=== PATIENT | female | born 1990 | race Caucasian/White ===

== ENCOUNTER 2024-03-27 15:02 | Emergency (ER) | payer SELFPAY ==
[2024-03-27 15:31] VITALS: BP 102/56; PULSE 84; RESP 20; TEMP 36.5; O2SAT 98; BMI 38.2
--- NOTE | 2024-03-27 15:39 | ED_ITS ---
Discharge Plan Disposition Patient Disposition: Home, Self-Care Condition: Good Prescriptions Prescriptions: New cephalexin 500 mg capsule 500 mg PO QID 7 Days Qty: 28 0RF Referrals Follow up/Referrals: Provider,Referral, MD [Primary Care Provider] - See instructions Activity Restrictions/Add. Instructions Additional Instructions/Restrictions: Keep the wound clean and dry. Keep a dressing on it if you are going to be getting it dirty. Watch the wound for signs of infection, such as redness, swelling, drainage, fever. etc. Take tylenol or ibuprofen for pain. Follow up with your regular doctor. Return in 7 days to have the sutures removed. GO TO THE ER FOR ANY WORSENING SYMPTOMS OR CONCERNS. Clinical Impressions Clinical Impression: Laceration of left hand, Need for Tdap vaccination Stand Alone Forms Stand Alone Forms: Work/School Release Instructions Patient Instructions: DI for Laceration Repair -- Simple, Cephalexin Print Language Print Language: Pashto Discharge ED Provider: Garth Walters [facility] General Stated complaint: AO 10-6 cut left hand at work Mode of Arrival: Ambulatory Source of Information: Patient Time Seen by Provider: 03/27/24 15:37 Description of Symptoms (Recalled from Triage Doc. 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 Her tetanus immunization is not up to date. Related Data Previous Rx's ?Medication ?Instructions ?Recorded cephalexin 500 mg capsule 500 mg PO QID 7 days #28 caps 03/27/24 Allergies Allergy/AdvReac Type Severity Reaction Status Date / Time No Known Allergies Allergy Unverified 03/27/24 16:13 Worker's Comp Is this a Worker's Comp case?: No [facility] Disclaimer: The information contained in this section may have been updated after the patient was seen, as this information can be updated by other users. Social History Smoking Status: Never smoker alcohol intake: never current occupational status: employed Travel in the last 8 weeks: None ROS Obtained: Yes All systems reviewed & no additional complaints except as documented Constitutional Constitutional: Denies chills and Denies fever(s) Eyes Eyes: Denies eye discharge ENT Ears, Nose, Mouth, and Throat: Denies dizziness, Denies otalgia and Denies sore throat Cardiovascular Cardiovascular: Denies chest pain Respiratory Respiratory: Denies shortness of breath, Denies chest congestion, Denies cough, Denies stridor and Denies wheezing Gastrointestinal Gastrointestingal: Denies nausea or vomiting Musculoskeletal Musculoskeletal: Reports system reviewed and no additional complaints, except as documented and Denies arthralgias Integumentary/Breasts Skin/Breast: Reports as per HPI Neurologic Neurologic: Denies dizziness and Denies paresthesias Allergic/Immunologic Allergic/Immunologic: Denies wheezing Physical Exam General General appearance: alert and in no apparent distress Head Head exam: atraumatic, normocephalic and normal inspection Eye Eye exam: Present normal appearance, PERRL and EOMI ENT ENT exam: Present normal exam, normal oropharynx, mucous membranes moist, TM's n ormal bilaterally and normal external ear exam Neck Neck exam: Present normal inspection, full ROM and trachea midline; Absent meningismus or lymphadenopathy Chest Chest inspection: Present normal inspection and symmetric chest wall rise; Absent tenderness Respiratory Respiratory exam: Present normal lung sounds bilaterally; Absent respiratory distress Cardiovascular Cardiovascular exam: Present regular rate and normal rhythm; Absent JVD Abdominal Exam Abdominal exam: Present soft and normal bowel sounds; Absent distention, tenderness or guarding Extremities Exam Extremities exam: Present normal inspection, full ROM and normal capillary refill; Absent calf tenderness Back Exam Back exam: Present normal inspection; Absent tenderness Neurological Exam Neurological exam: Present alert and oriented X3 Psychiatric Psychiatric exam: Present normal affect and normal mood Skin Skin exam: Present other (there is a 1 cm linear laceration on the palm of her left hand. there is no deep tissue or tendon damage. no foreign body noted. she has good 2 point touch discrimination distal to the wound.) Lymphatic Lymphatic Findings: no adenopathy Medical Decision Making Medical Records Medical records reviewed: No I reviewed the patient's medical records. Screening: Per USPSTF and CDC recommendations, given the prevalence of disease in our region, it is our hospital?s policy to screen for HIV and viral Hepatitis for all patients aged 18 and over and those with ongoing risk factors. Jeb Inquiry Pt receiving controlled substance: No Vital Signs: 03/27/24 15:31 Temperature 97.7 F Temperature Source Oral Pulse Rate [Left Radial] 84 Respiratory Rate 20 Blood Pressure [Left Arm] 102/56 L Blood Pressure Mean [Left Arm] 71 02 Sat by Pulse Oximetry 98 Orders (Tests/Meds): ED MEDICATIONS Generic Name Dose Route Start Last Admin Trade Name Freq PRN Reason Stop Dose Admin Tetanus/Diphtheria Toxoids 0.5 ml 03/27/24 15:38 Tetanus-Diphth Toxoid, Adult 0.5ml Syr IM 03/27/24 15:39 .ONCE ONE Procedures Risk/Benefits of Procedure(s) Were Explained: Yes Laceration Laceration 1: Site: hand Side (If applicable): left Size (cm): 1 Description: linear Depth: simple, single layer Local Anesthetic: lidocaine 1% Amount of anesthesia used (mL): 1 Pre-repair: wound explored, irrigated extensively and deep structures intact Skin layer closed with: nylon Size (cm): 5-0 Number of sutures: 2 Technique: simple, interrupted (she tolerated this well, good closure was obtained, the edges were approximated well)
[2024-03-27] MEDS: TET/DIPHTH/PERT-ADULT 0.5ML SYRINGE 0.5 ML IM (16:34)
[2024-03-27 17:26] VITALS: BP 102/56; PULSE 84; RESP 20; TEMP 36.5
== END 2024-03-27 17:33 | disposition home or self-care (01) ==
PROVIDERS: Emergency Provider Nurse Practitioner Family
DX: S61.412A Laceration without foreign body of left hand, initial encounter (principal); W26.0XXA Contact with knife, initial encounter
CPT/HCPCS: 12001; 90471; 90715; 99213; G0381

== ENCOUNTER 2024-04-03 11:43 | Emergency (ER) | payer MEDICAID, SELFPAY ==
[2024-04-03 12:05] VITALS: BP 138/93; PULSE 81; RESP 20; TEMP 36.8; O2SAT 98; BMI 33.3
[2024-04-03 12:15] VITALS: BP 138/93; PULSE 81; RESP 20; TEMP 36.8; O2SAT 98
== END 2024-04-03 12:17 | disposition home or self-care (01) ==
PROVIDERS: Emergency Provider Nurse Practitioner
DX: Z48.02 Encounter for removal of sutures (principal)
CPT/HCPCS: 99211; G0380

== ENCOUNTER 2024-04-27 09:28 | Emergency (ER) | payer OTHER, SELFPAY ==
[2024-04-27 09:30] VITALS: BP 170/110; PULSE 98; RESP 18; TEMP 36.8; O2SAT 98; BMI 38.2
--- NOTE | 2024-04-27 09:55 | PC.NURSE ---
calling radiology to power share the right images at this time.
--- NOTE | 2024-04-27 10:00 | ED_ITS ---
Discharge Plan Disposition Patient Disposition: Home, Self-Care Condition: Good Prescriptions Prescriptions: New naproxen 500 mg tablet 500 mg PO BID Qty: 20 0RF No Action cephalexin 500 mg capsule 500 mg PO QID 7 Days Qty: 28 0RF Referrals Follow up/Referrals: Nik Levia DO [Staff Physician] - See instructions Provider,Referral, [Primary Care Provider] - See instructions Activity Restrictions/Add. Instructions Additional Instructions/Restrictions: You were evaluated in the emergency department today. Please follow-up closely with orthopedics for further evaluation of your knee effusion. 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 Rest, ice, and keep your knee elevated. Return to the emergency department for new or worsening symptoms. Clinical Impressions Clinical Impression: Acute pain of left knee, Suprapatellar effusion of knee, Osteoarthritis Stand Alone Forms Stand Alone Forms: Work/School Release Instructions Patient Instructions: DI for Knee Effusion, DI for Knee Pain Print Language Print Language: Kittitian Discharge ED Provider: Alyssa Green General Adult HPI General Chief complaint: PAIN Stated complaint: L knee pain Time Seen by Provider: 04/27/24 09:45 Mode of Arrival: Ambulatory Source of Information: Patient Limitations: No Limitations Description of Symptoms (Recalled from ER Triage Doc. by RN): PT C/O SWELLING AND PAIN TO LEFT KNEE. 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 History of Present Illness HPI narrative: This patient is a 33-year-old female with history of obesity presenting to the emergency department for evaluation with concern for left knee pain and swelling. She notes that initially, her left lower leg was a little bit swollen but now her left knee has been swollen for several days. She states that she has been moving and also has been playing with rough and rowdy kids with increase in activity as of late, but no notable falls or injuries that she can remember. She has limited range of motion secondary to the swelling but she is still able to range her knee and is able to bear weight, though it is painful. No recent fevers, chills, rashes, wounds, chest pain, shortness of breath, nausea, vomiting, or other concerns. Related Data Previous Rx's ?Medication ?Instructions ?Recorded cephalexin 500 mg capsule 500 mg PO QID 7 days #28 caps 03/27/24 naproxen 500 mg tablet 500 mg PO BID #20 tabs 04/27/24 Allergies Allergy/AdvReac Type Severity Reaction Status Date / Time No Known Allergies Allergy Unverified 03/27/24 16:13 [facility] Disclaimer: The information contained in this section may have been updated after the patient was seen, as this information can be updated by other users. Social History Smoking Status: Current every day smoker alcohol intake: never current occupational status: employed Travel in the last 8 weeks: None ROS Obtained: Yes All systems reviewed & no additional complaints except as documented Physical Exam General General appearance: alert and in no apparent distress Head Head exam: atraumatic and normocephalic Eye Eye exam: Present normal appearance, PERRL and EOMI ENT ENT exam: Present normal exam, normal oropharynx, mucous membranes moist and normal external ear exam Neck Neck exam: Present normal inspection, full ROM and trachea midline; Absent tenderness Chest Chest inspection: Present normal inspection and symmetric chest wall rise; Absent tenderness Respiratory Respiratory exam: Present normal lung sounds bilaterally; Absent respiratory distress, wheezes, stridor or accessory muscle use Cardiovascular Cardiovascular exam: Present regular rate and normal rhythm Abdominal Exam Abdominal exam: Present soft; Absent distention, tenderness or guarding Extremities Exam Extremities exam: Present normal capillary refill, edema (mild LLE edema), joint swelling (L knee. No significant redness, warmth. No wounds.) and other (Neurovascularly intact distally); Absent full ROM (Limited active end range of motion of the left knee secondary to swelling, but motion is preserved from 0 to 90 degrees. Less pain with passive ROM) or tenderness Back Exam Back exam: Present normal inspection and full ROM; Absent tenderness Neurological Exam Neurological exam: Present alert, oriented X3, CN II-XII intact and normal gait; Absent motor sensory deficit Psychiatric Psychiatric exam: Present normal affect and normal mood Skin Skin exam: Present warm and dry Medical Decision Making Medical Records Medical records reviewed: Yes I reviewed the patient's medical records. Screening: Per USPSTF and CDC recommendations, given the prevalence of disease in our region, it is our hospital?s policy to screen for HIV and viral Hepatitis for all patients aged 18 and over and those with ongoing risk factors. Jeb Inquiry Pt receiving controlled substance: No Vital Signs: 04/27/24 09:30 04/27/24 10:14 04/27/24 12:24 Temperature 98.3 F 98.0 F Temperature Source Oral Pulse Rate 84 84 Pulse Rate [Radial] 98 H Respiratory Rate 18 13 Blood Pressure 127/85 127/85 Blood Pressure [Right Arm] 170/110 H Blood Pressure Mean [Right Arm] 130 Blood Pressure Source [Right Arm] Automatic Cuff Blood Pressure Position [Right Arm] Sitting 02 Sat by Pulse Oximetry 98 96 Oxygen Delivery Method Room Air Room Air Lab Data Lab results reviewed: Yes I reviewed the patient's lab results. Lab Results 04/27/24 10:55: Urine Color Yellow, Urine Appearance Sl cloudy, Urine pH 7.5, Ur Specific [place] 1.015, Urine Protein Negative, Urine Glucose (UA) Negative, Urine Ketones Negative, Urine Blood Negative, Urine Nitrate Negative, Urine Bilirubin Negative, Urine Urobilinogen 0.2, Ur Leukocyte Esterase Negative, Urine RBC Occasional, Urine WBC Occasional, Ur Squamous Epith Cells 3-5, Urine Bacteria Trace 04/27/24 11:00: WBC 9.6, RBC 4.79, Hgb 14.5, Hct 42.6, MCV 89.1, MCH 30.4, MCHC 34.1, RDW 13.0, Plt Count 401, MPV 7.1 L, Neut % (Auto) 62.2, Lymph % (Auto) 26.2, [place] % (Auto) 5.3, Eos % (Auto) 5.1, Baso % (Auto) 1.2, Neut # (Auto) 6.0, Lymph # (Auto) 2.5, [place] # (Auto) 0.5, Eos # (Auto) 0.5 H, Baso # (Auto) 0.1, ESR 17, Sodium 139, Potassium 4.1, Chloride 109 H, Carbon Dioxide 22, Anion Gap 12.1, BUN 7, Creatinine 0.70, Estimated Creat Clear 185, Estimated GFR 95, Est GFR ( Amer) 115, Glucose 93, Calcium 8.7, Total Bilirubin 0.6, AST 27, ALT 30, Alkaline Phosphatase 78, C-Reactive Protein 8.5 H, Total Protein 6.9, Albumin 4.1, Globulin 2.8, Albumin/Globulin Ratio 1.5, Serum HCG, Qual Negative, HIV 1&2 Antibody Rapid Nonreactive 04/27/24 11:00 04/27/24 11:00 Orders (Tests/Meds): ED MEDICATIONS Discontinued Medications Generic Name Dose Route Start Last Admin Trade Name Nicole PRN Reason Stop Dose Admin Ketorolac Tromethamine 15 mg 04/27/24 12:15 04/27/24 12:19 Ketorolac 30mg/Ml Vial IV 04/27/24 12:16 15 mg ONCE ONE Administration ORDERS Category Date Time Status CT knee LT wo con Stat Cat Scan 04/27/24 10:38 Completed Femur XR left 2 views [XR femur LT 2V] Stat Exams 04/27/24 10:38 Taken Knee XR left 3 views [XR knee LT 3V] Stat Exams 04/27/24 10:06 Completed Tibia/fibula XR left 2 views [XR tibia fibula LT 2V] Exams 04/27/24 10:06 Completed Stat CRP [C-Reactive Protein] Stat Lab 04/27/24 11:00 Completed Complete Blood Count Auto Diff Stat Lab 04/27/24 11:00 Completed Comprehensive Metabolic Panel Stat Lab 04/27/24 11:00 Completed ESR [Erythrocyte Sedimentation Rate] Stat Lab 04/27/24 11:00 Completed HIV (1&2) Antibody Rapid Stat Lab 04/27/24 11:00 Completed Hep C Ab with Reflex to RNA Stat Lab 04/27/24 11:00 Received Serum [HCG Qualitative, Serum] Stat Lab 04/27/24 11:00 Completed UA [Urinalysis and Microscopic] Stat Lab 04/27/24 10:55 Completed CA venous doppler LE LT Stat Y 04/27/24 10:06 Completed Medical Decision Narrative: In summary, this patient is a 33-year-old female presenting to the Emergency Department for evaluation of left knee pain and swelling. Differential diagnoses considered include but are not limited to arthritis, soft tissue injury, cartilaginous/ligamentous injury, fracture, gout, septic arthritis. Ruling out the most morbid conditions drove assessment. On exam, the patient is lying in bed in no acute distress. She has preserved range of motion of her knee actively from 0 to 90 degrees and passive range of motion is preserved as well. No redness, warmth, wounds.overall exam is reassuring and low concern for septic arthritis based on clinical exam. She is neurovascularly intact distally. Workup included CBC, CMP, ESR, CRP, x-rays of the left lower extremity, and DVT ultrasound. I independently interpreted x-rays and DVT ultrasound prior to the radiologist read and noted arthritic changes, no DVT. Please see their read for final interpretation. Labs were obtained that demonstrated no significant elevation in ESR, no significant leukocytosis. CRP is just above the upper limits of normal. Based on Anne criteria, low concern for septic arthritis. Radiology noted possible bony fragment in the left knee, so CT scan was ordered. This demonstrated arthritic changes but no obvious acute fracture or other concern. Ultimately, based on reassuring workup and exam, I feel the patient is appropriate for discharge home. I feel her effusion is likely related to arthritic changes and her recent increase in movement and activity. She was given prescriptions for anti-inflammatory, instructions for close follow-up with primary care, and strict return precautions. Patient was discharged after all questions were answered. Critical Care Critical Care Time Critical Care Time: No
--- NOTE | 2024-04-27 10:06 | XR_ITS ---
PROCEDURE INFORMATION: Exam: XR Left Knee Exam date and time: 04/27/2024 10:07 AM Age: 33 years old Clinical indication: Swelling, leg or foot; Additional info: Pain, swelling TECHNIQUE: Imaging protocol: Radiologic exam of the left knee. Views: 3 views. COMPARISON: No relevant prior studies available. FINDINGS: Bones/joints: Moderate degenerative changes within the lateral compartment and to a lesser degree the medial compartment. Joint space narrowing with osteophytosis. Mild patellofemoral degenerative changes. Small suprapatellar effusion. Soft tissues: Normal. Other findings: Probable loose body. Correlation with CT suggested. IMPRESSION: 1. Moderate degenerative changes within the lateral compartment and to a lesser degree the medial compartment. Joint space narrowing with osteophytosis laterally. 2. Mild patellofemoral degenerative changes. 3. Small suprapatellar effusion. 4. Probable loose body. Correlation with CT suggested.
--- NOTE | 2024-04-27 10:06 | XR_ITS ---
PROCEDURE INFORMATION: Exam: XR Left Tibia and Fibula Exam date and time: 04/27/2024 10:08 AM Age: 33 years old Clinical indication: Swelling, leg or foot; Additional info: Pain, swelling TECHNIQUE: Imaging protocol: Radiologic exam of the left tibia and fibula. Views: 2 views. COMPARISON: CR XR KNEE LT 3V 04/27/2024 10:07 AM FINDINGS: Bones/joints: Osseous structures unremarkable. No erosive changes. No periosteal response. No fracture. No soft tissue calcifications. Moderate degenerative changes within the knee particularly laterally. Soft tissues: See Bones/joints finding. IMPRESSION: No fracture. 1. Osseous structures unremarkable. No erosive changes. No periosteal response. No fracture. No soft tissue calcifications. 2. Moderate degenerative changes within the knee particularly laterally.
--- NOTE | 2024-04-27 10:06 | CA_ITS ---
FINAL REPORT TECHNIQUE: Color Doppler, duplex Doppler and compression sonography of the left lower extremity deep venous systems was performed. CLINICAL HISTORY: Left knee pain x 3 days. Denies trauma. Patient states she has pain when bending her left knee. She states she noticed edema 2 days ago. 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 FINDINGS: There is no evidence of deep venous thrombosis from the level of the groin to the calf. The veins are patent and compressible. IMPRESSION: No evidence of deep venous thrombosis left lower extremity. Reviewed, Interpreted and Dictated by Rommel Mckinley III, MD Transcribed by Surekha Douglas Authenticated and [facility]
[2024-04-27 10:14] VITALS: BP 127/85; PULSE 84; O2SAT 96
--- NOTE | 2024-04-27 10:30 | PC.NURSE ---
DOPPLER AT BEDSIDE
--- NOTE | 2024-04-27 10:38 | XR_ITS ---
FINAL REPORT CLINICAL HISTORY: pain, swelling FINDINGS: Left femur Two views were obtained. There is no fracture or dislocation. There are mild degenerative changes of the knee. No soft tissue abnormality is identified. IMPRESSION: No acute process. Reviewed, Interpreted and Dictated by Rommel Mckinley III, MD Transcribed by Surekha Douglas Authenticated and [facility]
--- NOTE | 2024-04-27 10:38 | CT_ITS ---
PROCEDURE INFORMATION: Exam: CT Left Lower Extremity, Knee Exam date and time: 04/27/2024 11:36 AM Age: 33 years old Clinical indication: Swelling, leg or foot; Additional info: Loose body on XR, pain, swelling TECHNIQUE: Imaging protocol: CT of the left lower extremity without contrast was performed. Exam focused on the knee. Radiation optimization: All CT scans at this facility use at least one of these dose optimization techniques: automated exposure control; mA and/or kV adjustment per patient size (includes targeted exams where dose is matched to clinical indication); or iterative reconstruction. COMPARISON: CR XR KNEE LT 3V 04/27/2024 10:07 AM FINDINGS: Bones/joints: There is no evidence for acute fracture or dislocation. Overall bony mineralization is within normal limits. There is medial compartment narrowing with lateral compartment degenerative osteophytosis and endplate defect along the tibial plateau as well as loose bodies within the joint space. There is a small joint effusion. Soft tissues: Normal. IMPRESSION: Arthritic change in the left knee as described.
[2024-04-27 11:00] LABS: Microscopic, Urine URINE MICROSCOPIC (MICROSCOPIC)
[2024-04-27 11:03] LABS: Appearance,Urine SL CLOUDY (Clear); Bilirubin,Urine Negative (Negative); Blood, Urine Negative (Negative); Color,Urine YELLOW (Yellow); Glucose,Urine (UA) Negative (Negative); Ketones,Urine Negative (Negative); Leukocyte Esterase,Urine Negative (Negative); Nitrate,Urine Negative (Negative); PH,Urine 7.5 (5.0-8.5); Protein,Urine Negative (Negative); Specific Gravity, Urine 1.015 (1.005-1.030); Urobilinogen,Urine 0.2 EU/dl (0.2)
[2024-04-27 11:12] LABS: Bacteria,Urine Trace /lpf; RBC,Urine Occasional #/hpf (0-3); WBC,Urine Occasional #/hpf (0-3)
[2024-04-27 11:12] LABS: Basophils # 0.1 K/mm3 (0-0.2); Basophils % 1.2 % (0.1-2.0); Eosinophils # 0.5 K/mm3 (0.0-0.4); Eosinophils % 5.1 % (0.1-12.0); Hematocrit 42.6 % (37.0-47.0); Hemoglobin 14.5 g/dL (12.2-16.2); Lymphocytes # 2.5 K/mm3 (0.7-4.5); Lymphocytes % 26.2 % (10-50); Mean Corpuscular HGB Conc 34.1 g/dL (31.8-35.4); Mean Corpuscular Hemoglobin 30.4 pg (27.0-31.2); Mean Corpuscular Volume 89.1 fl (81-99); Mean Platelet Volume 7.1 fl (7.4-10.4); Monocytes # 0.5 K/mm3 (0.1-1.0); Monocytes % 5.3 % (1.7-9.3); Neutrophils % 62.2 % (37.0-80.0); Platelet Count 401 K/mm3 (142-424); Red Blood Count 4.79 M/mm3 (4.20-5.40); White Blood Count 9.6 K/mm3 (4.8-10.8)
[2024-04-27 11:27] LABS: Alanine Aminotransferase 30 U/L (12-78); Albumin Level 4.1 g/dl (3.5-5.0); Albumin/Globulin Ratio 1.5 (1.1-1.8); Alkaline Phosphatase 78 U/L (38-126); Anion Gap 12.1 mEq/L (5-15); Aspartate Amino Transferase 27 U/L (14-36); Bilirubin,Total 0.6 mg/dl (0.2-1.3); Blood Urea Nitrogen 7 mg/dl (7-17); Calcium 8.7 mg/dl (8.4-10.2); Carbon Dioxide 22 mmol/L (22.0-30.0); Chloride 109 mmol/L (98-107); Creatinine Clearance Estimated 185 mL/min (50-200); Estimated Glomerular Filt Rate 95 ml/min (>60); GFR (African American) 115 ML/MIN (>60); Globulin 2.8 g/dL (1.3-3.2); Glucose 93 mg/dl (74-100); Potassium 4.1 mmoL/L (3.5-5.1); Sodium 139 mmol/L (136-145); Total Protein,Serum 6.9 g/dl (6.3-8.2)
[2024-04-27 11:29] LABS: HCG Qualitative, Serum Negative (Negative)
[2024-04-27 11:32] LABS: C-Reactive Protein 8.5 mg/L (0-4)
--- NOTE | 2024-04-27 11:45 | PC.NURSE ---
PT RETURNED FROM CT
[2024-04-27 12:04] LABS: Erythrocyte Sedimentation Rate 17 mm/hr (0-20)
[2024-04-27 12:18] LABS: HIV (1&2) Antibody Rapid NONREACTIVE (NONREACTIVE)
[2024-04-27] MEDS: KETOROLAC 30MG/ML VIAL 15 MG IV (12:19)
[2024-04-27 12:24] VITALS: BP 127/85; PULSE 84; RESP 13; TEMP 36.7; O2SAT 96
[2024-04-28 07:20] LABS: HCV Ab Non Reactive (Non Reactive)
[2024-04-29 04:32] LABS: Neisseria gonorrhoeae, NAA Negative (Negative)
== END 2024-04-27 12:24 | disposition home or self-care (01) ==
PROVIDERS: Emergency Provider Emergency Medicine
DX: M25.469 Effusion, unspecified knee (principal); M19.90 Unspecified osteoarthritis, unspecified site; M25.562 Pain in left knee
CPT/HCPCS: 73552; 73562; 73590; 73700; 80053; 81001; 84703; 85025; 85651; 86140; 86803; 87389; 87491; 87591; 93971; 96374; 99284; J1885

== ENCOUNTER 2024-10-13 18:37 | Emergency (ER) | payer OTHER, SELFPAY ==
[2024-10-13 18:43] VITALS: BP 159/113; PULSE 76; RESP 18; TEMP 36.6; O2SAT 96; BMI 38.2
--- NOTE | 2024-10-13 18:51 | ED_ITS ---
<Statement entered by Pebbles Jane MD - 10/13/24 22:35> I was consulted by the ALEXANDRA, and we discussed the complexity of the problems being addressed. I approved the treatment and management plan for this patient's care in the emergency department, thus performing a substantive portion of the medical decision making. Pebbles Jane MD, JULISA, FACEP Discharge Plan Disposition Patient Disposition: Home, Self-Care Condition: Good Prescriptions Prescriptions: No Action cephalexin 500 mg capsule 500 mg PO QID 7 Days Qty: 28 0RF naproxen 500 mg tablet 500 mg PO BID Qty: 20 0RF Referrals Follow up/Referrals: Nik Leiva DO [Staff Physician] - See instructions Provider,Referral, [Primary Care Provider] - See instructions Activity Restrictions/Add. Instructions Additional Instructions/Restrictions: I recommend taking Tylenol 1000 mg every 8 hours while you are having pain. I have referred you to orthopedics for further evaluation. Please call in the morning to make your appointment. If you have any continued new or worsening signs or symptoms follow-up with your PCP return to the ER as needed. Clinical Impressions Clinical Impression: Arthralgia of knee, right Stand Alone Forms Stand Alone Forms: Work/School Release Print Language Print Language: Mongolian Discharge ED Provider: Pebbles Jane General Adult HPI <TRINA Preston - Last Filed: 10/13/24 21:05> General Chief complaint: Extremity Injury, Lower Stated complaint: Right knee pain Time Seen by Provider: 10/13/24 18:51 Mode of Arrival: Wheelchair Source of Information: Patient Description of Symptoms (Recalled from ER Triage Doc. by RN): r knee pain. hx of arthritis. History of Present Illness HPI narrative: Patient presents for evaluation of right knee pain. Patient has a history of previous knee injury who wears a brace every day who has been having 1 week of increasing knee pain. She denies any trauma reports it is very painful to stand on. She denies any fever redness swelling numbness tingling loss of motor or sensory. Related Data Previous Rx's ?Medication ?Instructions ?Recorded cephalexin 500 mg capsule 500 mg PO QID 7 days #28 caps 03/27/24 naproxen 500 mg tablet 500 mg PO BID #20 tabs 04/27/24 Allergies Allergy/AdvReac Type Severity Reaction Status Date / Time No Known Allergies Allergy Unverified 03/27/24 16:13 [facility] <TRINA Preston - Last Filed: 10/13/24 21:05> [facility] Disclaimer: The information contained in this section may have been updated after the patient was seen, as this information can be updated by other users. Social History Smoking Status: Current every day smoker alcohol intake: never current occupational status: employed Travel in the last 8 weeks: None Have you lived/traveled outside US in past 30 days?: No Contact w/someone who lives/traveled outside US past 30 days?: No Exposure to someone with infectious disease in past 14 days?: No Do you have a fever (greater than 100.4 F or 38 C)?: No Have you tested positive for COVID-19: No Exposed to someone with COVID-19 in past 14 days?: No Do you have a sore throat?: No Do you have a cough?: No Do you have any weakness?: No Do you have any diarrhea?: No Are you experiencing any unusual bleeding?: No Do you have any muscle aches/pain?: No Do you have any abdominal pain?: No Are you experiencing loss of taste or smell?: No <TRINA Preston - Last Filed: 10/13/24 21:05> ROS Obtained: Yes Systems reviewed as appropriate & no additional complaints except as documented Physical Exam <TRINA Preston - Last Filed: 10/13/24 21:05> General General appearance: alert and in no apparent distress Respiratory Respiratory exam: Present normal lung sounds bilaterally Cardiovascular Cardiovascular exam: Present regular rate Neurological Exam Neurological exam: Present alert and oriented X3 Medical Decision Making <TRINA Preston - Last Filed: 10/13/24 21:05> Medical Records Medical records reviewed: Yes I reviewed the patient's medical records. Screening: Per USPSTF and CDC recommendations, given the prevalence of disease in our region, it is our hospital?s policy to screen for HIV and viral Hepatitis for all patients aged 18 and over and those with ongoing risk factors. Jeb Inquiry Pt receiving controlled substance: No Vital Signs: 10/13/24 18:43 10/13/24 19:00 10/13/24 19:30 Temperature 97.8 F Temperature Source Oral Pulse Rate 80 73 Pulse Rate [Right] 76 Respiratory Rate 18 Blood Pressure 168/123 H 158/103 H Blood Pressure [Right Arm] 159/113 H Blood Pressure Mean [Right Arm] 128 02 Sat by Pulse Oximetry 96 96 97 Oxygen Delivery Method Room Air Room Air Room Air 10/13/24 20:00 Temperature Temperature Source Pulse Rate 72 Pulse Rate [Right] Respiratory Rate Blood Pressure 154/102 H Blood Pressure [Right Arm] Blood Pressure Mean [Right Arm] 02 Sat by Pulse Oximetry 98 Oxygen Delivery Method Lab Data Lab results reviewed: Yes I reviewed the patient's lab results. Lab Results 10/13/24 18:35: WBC 11.0 H, RBC 4.56, Hgb 13.5, Hct 40.3, MCV 88.4, MCH 29.6, MCHC 33.5, RDW 12.2, Plt Count 386, MPV 9.3, Neut % (Auto) 56.8, Lymph % (Auto) 31.2, [place] % (Auto) 6.0, Eos % (Auto) 4.8, Baso % (Auto) 0.7, Neut # (Auto) 6.2, Lymph # (Auto) 3.4, [place] # (Auto) 0.7, Eos # (Auto) 0.5 H, Baso # (Auto) 0.1, ESR 17, Sodium 140, Potassium 3.6, Chloride 109 H, Carbon Dioxide 25, Anion Gap 9.6, BUN 7, Creatinine 0.70, Estimated Creat Clear 183, Estimated GFR 95, Est GFR ( Amer) 115, Glucose 93, Calcium 9.2, Total Bilirubin 0.4, AST 29, ALT 33, Alkaline Phosphatase 95, C-Reactive Protein 6.5 H, Total Protein 7.0, Albumin 4.0, Globulin 3.0, Albumin/Globulin Ratio 1.3, Procalcitonin 0.033, Serum HCG, Qual Negative 10/13/24 18:35 10/13/24 18:35 Orders (Tests/Meds): ED MEDICATIONS Discontinued Medications Generic Name Dose Route Start Last Admin Trade Name Freq PRN Reason Stop Dose Admin Acetaminophen 1,000 mg 10/13/24 19:02 10/13/24 19:17 Acetaminophen 500mg Tab PO 10/13/24 19:03 1,000 mg ONCE ONE Administration Ketorolac Tromethamine 15 mg 10/13/24 19:02 10/13/24 19:17 Ketorolac 30mg/Ml Vial IV 10/13/24 19:03 15 mg ONCE ONE Administration ORDERS Category Date Time Status Knee XR left 3 views [XR knee LT 3V] Stat Exams 10/13/24 19:00 Completed Knee XR right 3 views [XR knee RT 3V] Stat Exams 10/13/24 19:00 Completed POCUS Point of Care (ER Only) Stat Exams 10/13/24 19:00 Completed CBC w/Auto Diff [Complete Blood Count Auto Diff] Stat Lab 10/13/24 18:35 Completed CMP [Comprehensive Metabolic Panel] Stat Lab 10/13/24 18:35 Completed CRP [C-Reactive Protein] Stat Lab 10/13/24 18:35 Completed ESR [Erythrocyte Sedimentation Rate] Stat Lab 10/13/24 18:35 Completed HCG Qualitative, Serum Stat Lab 10/13/24 18:35 Completed Procalcitonin Stat Lab 10/13/24 18:35 Completed Medical Decision Narrative: In summary patient is a 34-year-old female who presents to the emergency department for evaluation of right knee pain. Patient is hypertensive with a blood pressure 159/113 but a pulse of 76 normal sinus rhythm on the bedside monitor breathe 18 times a minute satting at 96% on room air upon arrival, afebrile at 97.8. Physical exam is remarkable for marked tenderness about the right knee however there is no erythema no warmth no redness induration crepitus. She does have painful range of motion however.. Differential diagnosis includes osteoarthritis versus septic arthritis versus soft tissue injury etc. Initial workup will be conducted with POCUS plain film x-rays hematologic labs.. Initial interventions include Tylenol Toradol. Initial workup reviewed by wi POCUS reveals no acute abnormality no joint effusion. Upon repeat evaluation patient reported moderate improvement of initial. Given this patient is appropriate discharged with referral onto orthopedics for further evaluation and care. Patient vies continue taking Tylenol every 8 hours while she is having pain. She can continue her supportive care with her brace. She has any continued new or worsening signs or symptoms she can follow-up with her PCP return to the ER as needed. <Pebbles Jane MD - Last Filed: 10/13/24 19:33> Vital Signs: 10/13/24 18:43 10/13/24 19:00 10/13/24 19:30 Temperature 97.8 F Temperature Source Oral Pulse Rate 80 73 Pulse Rate [Right] 76 Respiratory Rate 18 Blood Pressure 168/123 H 158/103 H Blood Pressure [Right Arm] 159/113 H Blood Pressure Mean [Right Arm] 128 02 Sat by Pulse Oximetry 96 96 97 Oxygen Delivery Method Room Air Room Air Room Air 10/13/24 20:00 Temperature Temperature Source Pulse Rate 72 Pulse Rate [Right] Respiratory Rate Blood Pressure 154/102 H Blood Pressure [Right Arm] Blood Pressure Mean [Right Arm] 02 Sat by Pulse Oximetry 98 Oxygen Delivery Method Lab Data Lab Results 10/13/24 18:35: WBC 11.0 H, RBC 4.56, Hgb 13.5, Hct 40.3, MCV 88.4, MCH 29.6, MCHC 33.5, RDW 12.2, Plt Count 386, MPV 9.3, Neut % (Auto) 56.8, Lymph % (Auto) 31.2, [place] % (Auto) 6.0, Eos % (Auto) 4.8, Baso % (Auto) 0.7, Neut # (Auto) 6.2, Lymph # (Auto) 3.4, [place] # (Auto) 0.7, Eos # (Auto) 0.5 H, Baso # (Auto) 0.1, ESR 17, Sodium 140, Potassium 3.6, Chloride 109 H, Carbon Dioxide 25, Anion Gap 9.6, BUN 7, Creatinine 0.70, Estimated Creat Clear 183, Estimated GFR 95, Est GFR ( Amer) 115, Glucose 93, Calcium 9.2, Total Bilirubin 0.4, AST 29, ALT 33, Alkaline Phosphatase 95, C-Reactive Protein 6.5 H, Total Protein 7.0, Albumin 4.0, Globulin 3.0, Albumin/Globulin Ratio 1.3, Procalcitonin 0.033, Serum HCG, Qual Negative Orders (Tests/Meds): ED MEDICATIONS Discontinued Medications Generic Name Dose Route Start Last Admin Trade Name Freq PRN Reason Stop Dose Admin Acetaminophen 1,000 mg 10/13/24 19:02 10/13/24 19:17 Acetaminophen 500mg Tab PO 10/13/24 19:03 1,000 mg ONCE ONE Administration Ketorolac Tromethamine 15 mg 10/13/24 19:02 10/13/24 19:17 Ketorolac 30mg/Ml Vial IV 10/13/24 19:03 15 mg ONCE ONE Administration ORDERS Category Date Time Status Knee XR left 3 views [XR knee LT 3V] Stat Exams 10/13/24 19:00 Completed Knee XR right 3 views [XR knee RT 3V] Stat Exams 10/13/24 19:00 Completed POCUS Point of Care (ER Only) Stat Exams 10/13/24 19:00 Completed CBC w/Auto Diff [Complete Blood Count Auto Diff] Stat Lab 10/13/24 18:35 Completed CMP [Comprehensive Metabolic Panel] Stat Lab 10/13/24 18:35 Completed CRP [C-Reactive Protein] Stat Lab 10/13/24 18:35 Completed ESR [Erythrocyte Sedimentation Rate] Stat Lab 10/13/24 18:35 Completed HCG Qualitative, Serum Stat Lab 10/13/24 18:35 Completed Procalcitonin Stat Lab 10/13/24 18:35 Completed Procedures <Pebbles Jane MD - Last Filed: 10/13/24 19:33> Miscellaneous Procedure Procedure Performed: Structures identified Common femoral veins and popliteal veins bilaterally Findings complete compression of right common femoral veins and right popliteal veins with normal augmentation on the right Impression no evidence of right sided DVT The study was performed by me and I personally interpreted all images and videos based on my clinical judgment these images were adequate and did not necessitate further imaging Limited soft tissue ultrasound Indication: Knee swelling and pain Identified structures: Location: Right knee Findings: No evidence of joint effusion or soft tissue inflammation Impression: Normal soft tissue and knee ultrasound Images were saved to permanent archive The study was technically adequate Soft Tissue CPT Codes: CPT Neck: 03212-75 CPT Upper extremity: 81727-10 CPT Axilla: 26607-86 CPT Chest wall: 02297-64 CPT Breast: 92155-98-VJ/LT (complete), 64780-18-EU/LT (limited), CPT Upper Back: 94454-51 CPT Lower Back: 08640-01 CPT Abdominal Wall: 84047-74 CPT Pelvic Wall: 17163-78 CPT Lower Extremity: 63659-32 CPT Other Soft Tissue: 00846-45 This study was performed by me, and I personally interpreted all images/videos. Based on my clinical judgement, these images were adequate and did not necessitate further imaging. Critical Care <TRINA Preston - Last Filed: 10/13/24 21:05> Critical Care Time Critical Care Time: No
[2024-10-13 19:00] VITALS: BP 168/123; PULSE 80; O2SAT 96
--- NOTE | 2024-10-13 19:00 | XR_ITS ---
PROCEDURE INFORMATION: Exam: XR Right Knee Exam date and time: 10/13/2024 8:17 PM Age: 34 years old Clinical indication: Pain; Knee; Right; Additional info: Bilateral atraumatic knee pain TECHNIQUE: Imaging protocol: Radiologic exam of the right knee. Views: 3 views. Total images: 3 COMPARISON: No relevant prior studies available. FINDINGS: Bones/joints: No acute fracture or joint dislocation. No joint effusion. Age-appropriate joint spaces. Benign-appearing ovoid bone lesion proximal tibia resembling a fibrous cortical defect or nonossifying fibroma. Soft tissues: Unremarkable soft tissues. IMPRESSION: No acute osseous abnormality.
--- NOTE | 2024-10-13 19:00 | XR_ITS ---
PROCEDURE INFORMATION: Exam: XR Left Knee Exam date and time: 10/13/2024 8:18 PM Age: 34 years old Clinical indication: Pain; Knee; Left; Additional info: Bilateral atraumatic knee pain TECHNIQUE: Imaging protocol: Radiologic exam of the left knee. Views: 3 views. Total images: 3 COMPARISON: CT KNEE LT WO CON 04/27/2024 11:36 AM FINDINGS: Bones/joints: No acute fracture or joint dislocation. Small joint effusion. Mild tricompartment degenerative arthritis. Multiple intra-articular loose bodies in the posterior tibiofemoral joint space. No concerning bone lesions. Soft tissues: Unremarkable soft tissues. IMPRESSION: 1. No acute osseous abnormality. 2. Tricompartment degenerative arthritis. 3. Multiple intra-articular loose bodies in the posterior tibiofemoral joint space. 4. Small joint effusion.
[2024-10-13] MEDS: KETOROLAC 30MG/ML VIAL 15 MG IV (19:17)
[2024-10-13] MEDS: ACETAMINOPHEN 500MG TAB 1000 MG PO (19:17)
[2024-10-13 19:30] VITALS: BP 158/103; PULSE 73; O2SAT 97
[2024-10-13 19:47] LABS: Basophils # 0.1 K/mm3 (0-0.2); Basophils % 0.7 % (0.1-2.0); Eosinophils # 0.5 Kmm3 (0.0-0.4); Eosinophils % 4.8 % (0.1-12.0); Hematocrit 40.3 % (37.0-47.0); Hemoglobin 13.5 g/dL (12.2-16.2); Lymphocytes # 3.4 K/mm3 (0.7-4.5); Lymphocytes % 31.2 % (10-50); Mean Corpuscular HGB Conc 33.5 g/dL (31.8-35.4); Mean Corpuscular Hemoglobin 29.6 pg (27.0-31.2); Mean Corpuscular Volume 88.4 fl (81-99); Mean Platelet Volume 9.3 fl (7.4-10.4); Monocytes # 0.7 K/mm3 (0.1-1.0); Neutrophils # 6.2 K/mm3 (1.8-7.8); Neutrophils % 56.8 % (37.0-80.0); Nucleated Red Blood Cells # 0 10^3/uL; Nucleated Red Blood Cells % 0 %; Platelet Count 386 K/mm3 (142-424); Red Blood Count 4.56 M/mm3 (4.20-5.40); Red Cell Distribution Width 12.2 % (11.5-17.5); Red Cell Distribution Width-SD 39.4 fL
[2024-10-13 20:00] VITALS: BP 154/102; PULSE 72; O2SAT 98
[2024-10-13 20:08] LABS: Alanine Aminotransferase 33 U/L (12-78); Albumin/Globulin Ratio 1.3 (1.1-1.8); Alkaline Phosphatase 95 U/L (38-126); Anion Gap 9.6 mEq/L (5-15); Aspartate Amino Transferase 29 U/L (14-36); Bilirubin,Total 0.4 mg/dl (0.2-1.3); Blood Urea Nitrogen 7 mg/dl (7-17); Calcium 9.2 mg/dl (8.4-10.2); Carbon Dioxide 25 mmol/L (22.0-30.0); Chloride 109 mmol/L (98-107); Creatinine Clearance Estimated 183 mL/min (50-200); Estimated Glomerular Filt Rate 95 ml/min (>60); GFR (African American) 115 ML/MIN (>60); Glucose 93 mg/dl (74-100); Potassium 3.6 mmoL/L (3.5-5.1); Sodium 140 mmol/L (136-145)
[2024-10-13 20:13] LABS: C-Reactive Protein 6.5 mg/L (0-4)
[2024-10-13 20:18] LABS: Erythrocyte Sedimentation Rate 17 mm/hr (0-20)
[2024-10-13 20:21] LABS: HCG Qualitative, Serum Negative (Negative)
[2024-10-13 20:27] LABS: Procalcitonin 0.033 ng/mL (0.0-2.0)
[2024-10-13 21:34] VITALS: BP 154/92; PULSE 72; RESP 99; TEMP 36.7; O2SAT 99
== END 2024-10-13 21:35 | disposition home or self-care (01) ==
PROVIDERS: Physician Assistant; Emergency Provider Student in an Organized Health Care Education/Training Program
DX: M25.561 Pain in right knee (principal)
CPT/HCPCS: 73562; 80053; 84145; 84703; 85025; 85651; 86140; 96374; 99284; J1885

== ENCOUNTER 2024-12-15 14:04 | Emergency (ER) | payer OTHER, SELFPAY ==
[2024-12-15 14:14] VITALS: BP 176/92; PULSE 90; O2SAT 98
[2024-12-15 14:16] VITALS: BP 176/92; PULSE 74; RESP 15; TEMP 36.7; O2SAT 100; BMI 41.5
[2024-12-15 14:19] LABS: Microscopic, Urine URINE MICROSCOPIC (MICROSCOPIC)
[2024-12-15 14:21] LABS: Appearance,Urine CLEAR (Clear); Bilirubin,Urine Negative (Negative); Blood, Urine Negative (Negative); Color,Urine YELLOW (Yellow); Glucose,Urine (UA) Negative (Negative); Ketones,Urine TRACE (Negative); Leukocyte Esterase,Urine Negative (Negative); Nitrate,Urine Negative (Negative); Protein,Urine Negative (Negative); Urobilinogen,Urine 0.2 EU/dl (0.2)
[2024-12-15 14:30] LABS: Bacteria,Urine Trace /lpf; Mucus,Urine Trace /lpf; Squamous Epithelial Cell,Urine Occasional #/hpf (0-5); WBC,Urine Occasional #/hpf (0-3)
--- NOTE | 2024-12-15 14:30 | ED_ITS ---
Discharge Plan Disposition Patient Disposition: Home, Self-Care Prescriptions Prescriptions: New prednisone 20 mg tablet 40 mg PO DAILY 5 Days Qty: 10 0RF No Action meloxicam 7.5 mg tablet 7.5 mg PO DAILY Qty: 30 2RF cephalexin 500 mg capsule 500 mg PO QID 7 Days Qty: 28 0RF Referrals Follow up/Referrals: Provider,Referral, MD [Primary Care Provider, Medical] - See instructions Activity Restrictions/Add. Instructions Additional Instructions/Restrictions: Call your family doctor to establish care for this visit to the emergency department and schedule follow-up within 48 hours to ensure improvement. If you have any worsening of your condition or any other concerning signs or symptoms, return to the emergency department or your primary care doctor for further evaluation. Clinical Impressions Clinical Impression: Right sciatic nerve pain Instructions Patient Instructions: DI for Low Back Pain Print Language Print Language: Kittitian Discharge ED Provider: Michael Sanchez General Adult HPI General Chief complaint: Back Pain/Injury Stated complaint: lower back pain Time Seen by Provider: 12/15/24 14:08 Mode of Arrival: Ambulatory Source of Information: Patient Description of Symptoms (Recalled from ER Triage Doc. by RN): patient states for 2 days she has had shooting pain radiating from right lower back down to heel. denies any injuries History of Present Illness HPI narrative: Please note that above description of symptoms, in this electronic medical record under categorization of recalled from ER triage doctor by RN are reflective of an initial nursing assessment, however, is not reflective of my full history and physical exam that was personally taken and clarified. Consequentially, this preceding description of symptoms, which may include the patient's categorized chief complaint in the EMR, do not reflect my personal clinical impression, and the ultimate description of history of present illness and patient stated complaints should be deferred to this section of the note. Unless stated otherwise or congruent with this section of the note, additional signs, symptoms, or incongruence should be interpreted as inaccurate with my cl inical impression. Related Data Previous Rx's ?Medication ?Instructions ?Recorded cephalexin 500 mg capsule 500 mg PO QID 7 days #28 cap s 03/27/24 meloxicam 7.5 mg tablet 7.5 mg PO DAILY #30 tabs 07/16 prednisone 20 mg tablet 40 mg (2 x 20 mg) PO DAILY 5 days 12/15/24 #10 tabs Allergies Allergy/AdvReac Type Severity Reaction Status Date / Time No Known Allergies Allergy Verified 10/20/24 11:19 [facility] Disclaimer: The information contained in this section may have been updated after the patient was seen, as this information can be updated by other users. Social History Smoking Status: Current every day smoker alcohol intake: never current occupational status: employed Travel in the last 8 weeks?: None Have you lived/traveled outside US in past 30 days?: No Contact w/someone who lives/traveled outside US past 30 days?: No Exposure to someone with infectious disease in past 14 days?: No Do you have a fever (greater than 100.4 F or 38 C)?: No Have you tested positive for COVID-19?: No Exposed to someone with COVID-19 in past 14 days?: No Do you have a sore throat?: No Do you have a cough?: No Do you have any weakness?: No Do you have any diarrhea?: No Are you experiencing any unusual bleeding?: No Do you have any muscle aches/pain?: No Do you have any abdominal pain?: No Are you experiencing loss of taste or smell?: No Other Medical History Have you received the Pneumonia Vaccine: No ROS Obtained: Yes All systems reviewed & no additional complaints except as documented Physical Exam General General appearance: alert Head Head exam: atraumatic and normocephalic Eye Eye exam: Present normal appearance, PERRL and EOMI Neck Neck exam: Present normal inspection, full ROM and trachea midline Respiratory Respiratory exam: Absent respiratory distress, wheezes, stridor, accessory muscle use or prolonged expiratory phase Cardiovascular Cardiovascular exam: Present other (Pulses equal symmetric in upper and lower extremities) Abdominal Exam Abdominal exam: Present soft; Absent distention, tenderness or pulsatile mass Extremities Exam Extremities exam: Absent edema Back Exam Back exam: Present tenderness Neurological Exam Neurological exam: Present alert, oriented X3 and CN II-XII intact; Absent motor sensory deficit Skin Skin exam: Present warm and dry; Absent diaphoresis or erythema Medical Decision Making Medical Records Medical records reviewed: Yes I reviewed the patient's medical records. Screening: Per USPSTF and CDC recommendations, given the prevalence of disease in our region, it is our hospital?s policy to screen for HIV and viral Hepatitis for all patients aged 18 and over and those with ongoing risk factors. Jeb Inquiry Pt receiving controlled substance: No Jeb was queried for this patient: No Vital Signs: 12/15/24 14:16 Temperature 98.1 F Temperature Source Oral Pulse Rate [Right Radial] 74 Respiratory Rate 15 Blood Pressure [Right Arm] 176/92 H Blood Pressure Mean [Right Arm] 120 Blood Pressure Source [Right Arm] Automatic Cuff Blood Pressure Position [Right Arm] Sitting 02 Sat by Pulse Oximetry 100 Oxygen Delivery Method Room Air Lab Data Lab Results 12/15/24 : Urine Color Yellow, Urine Appearance Clear, Urine pH 7.0, Ur Specific [place] 1.020, Urine Protein Negative, Urine Glucose (UA) Negative, Urine Ketones Trace, Urine Blood Negative, Urine Nitrate Negative, Urine Bilirubin Negative, Urine Urobilinogen 0.2, Ur Leukocyte Esterase Negative Orders (Tests/Meds): ED MEDICATIONS Generic Name Dose Route Start Last Admin Trade Name Freq PRN Reason Stop Dose Admin Dexamethasone Sodium Phosphate 10 mg 12/15/24 14:28 Dexamethasone 4mg/Ml 1ml Vial IM 12/15/24 14:29 ONCE ONE Ketorolac Tromethamine 15 mg 12/15/24 14:28 Ketorolac 30mg/Ml Vial IV 12/15/24 14:29 ONCE ONE ORDERS Category Date Time Status UA [Urinalysis and Microscopic] Stat Lab 12/15/24 Results Medical Decision Narrative: 34-year-old female presenting with sciatic nerve pain. She has a history of previous back injury necessitating microdiscectomy and repair of lumbosacral disc. States that she started a new job at [employer] she has been lifting heavy objects such as bags of dog food as well as gallons of water, etc. 2 or 3 days prior to this started having shooting pains rating down her right leg from her back. This been going progressively worse, came in for further evaluation given her history. No bowel or bladder dysfunction, no fevers, no history of IV drug abuse, no evidence of saddle anesthesia, no weakness, but pain has been so bad to the point where it feels like her leg is about to give out. History obtained with patient. On arrival, very clinically well. She is sitting betsey nargis toward her left holding her right leg out straight. Midline spinal tenderness of the lumbosacral spine. Neurologically intact. Differential include sciatic nerve pain, radiculopathy, radiculitis, among others. Patient has no red flag signs or symptoms. Imaging including CT scan of the spine was discussed with patient, but I do not feel it is necessary and after shared decision-making, she opted out of spinal imaging. I feel this is appropriate. Given Decadron IM as well as Toradol IM. Discharged in hemodynamically stable condition with close outpatient follow-up and precautions. Windows [employer] Do[employer] Installer disclaimer Much of this encounter note is an electronic rn school spoken language to printed text. Electronic rn school of the spoken language may permit errors. Although I have reviewed the note, some errors may still exist. Critical Care Critical Care Time Critical Care Time: No
[2024-12-15 14:31] VITALS: BP 126/93; PULSE 95; O2SAT 98
[2024-12-15] MEDS: KETOROLAC 30MG/ML VIAL 15 MG IM (14:44)
[2024-12-15] MEDS: DEXAMETHASONE 4MG/ML 1ML VIAL 10 MG IM (14:45)
[2024-12-15 14:58] VITALS: BP 150/57; PULSE 77; RESP 15; TEMP 36.9; O2SAT 99
== END 2024-12-15 14:59 | disposition home or self-care (01) ==
PROVIDERS: Emergency Provider Emergency Medicine
DX: M54.31 Sciatica, right side (principal)
CPT/HCPCS: 81001; 96372; 96374; 99284; J1100; J1885

== ENCOUNTER 2025-01-25 18:46 | Emergency (ER) | payer OTHER, SELFPAY ==
[2025-01-25 18:56] VITALS: BP 149/94; PULSE 104; RESP 16; TEMP 36.8; O2SAT 96; BMI 41.5
--- NOTE | 2025-01-25 19:03 | CT_ITS ---
PROCEDURE INFORMATION: Exam: CT Lumbar Spine Without Contrast Exam date and time: 01/25/2025 7:56 PM Age: 34 years old Clinical indication: Injury or trauma; Other: Fall, low back, R hip, R knee pain TECHNIQUE: Imaging protocol: Computed tomography of the lumbar spine without contrast. Radiation optimization: All CT scans at this facility use at least one of these dose optimization techniques: automated exposure control; mA and/or kV adjustment per patient size (includes targeted exams where dose is matched to clinical indication); or iterative reconstruction. COMPARISON: No relevant prior studies available. FINDINGS: Bones/joints: Degenerative changes at L4-L5 and L5-S1 producing mild spinal stenosis. Liver: Hepatic steatosis. Gallbladder and biliary ducts: Gallbladder is absent. Soft tissues: Unremarkable. IMPRESSION: 1. No acute fracture or malalignment of the lumbar spine. 2. Hepatic steatosis.
--- NOTE | 2025-01-25 19:03 | XR_ITS ---
PROCEDURE INFORMATION: Exam: XR Right Knee Exam date and time: 01/25/2025 7:58 PM Age: 34 years old Clinical indication: Injury or trauma; Other: Fall, low back, R hip, R knee pain TECHNIQUE: Imaging protocol: Radiologic exam of the right knee. Views: 3 views. COMPARISON: CR XR KNEE RT 3V 10/13/2024 8:17 PM FINDINGS: Bones/joints: Chronic proximal fibular deformity. No acute fracture or dislocation. Superior patella enthesophyte. Soft tissues: Mild anterior soft tissue edema. IMPRESSION: No acute fracture or dislocation.
--- NOTE | 2025-01-25 19:03 | XR_ITS ---
PROCEDURE INFORMATION: Exam: XR Right Femur Exam date and time: 01/25/2025 7:58 PM Age: 34 years old Clinical indication: Injury or trauma; Other: Fall, low back, R hip, R knee pain TECHNIQUE: Imaging protocol: Radiologic exam of the right femur. Views: 2 views. COMPARISON: CR XR FEMUR RT 2V 01/25/2025 7:58 PM FINDINGS: Bones/joints: No acute fracture or dislocation. Soft tissues: Unremarkable. IMPRESSION: No acute fracture or dislocation.
--- NOTE | 2025-01-25 19:03 | XR_ITS ---
PROCEDURE INFORMATION: Exam: XR Right Hip Exam date and time: 01/25/2025 7:58 PM Age: 34 years old Clinical indication: Injury or trauma; Other: Fall, low back, R hip, R knee pain TECHNIQUE: Imaging protocol: Radiologic exam of the right hip. Views: 2 or 3 views hip with pelvis when performed. COMPARISON: CR XR HIP RT 2-3V W/PELVIS 01/25/2025 7:58 PM FINDINGS: Bones/joints: No acute fracture or dislocation. Soft tissues: Unremarkable. IMPRESSION: No acute fracture or dislocation.
--- NOTE | 2025-01-25 19:06 | ED_ITS ---
Discharge Plan Disposition Patient Disposition: Home, Self-Care Condition: Good Prescriptions Prescriptions: No Action meloxicam 7.5 mg tablet 7.5 mg PO DAILY Qty: 30 2RF cephalexin 500 mg capsule 500 mg PO QID 7 Days Qty: 28 0RF prednisone 20 mg tablet 40 mg PO DAILY 5 Days Qty: 10 0RF Referrals Follow up/Referrals: Provider,Referral, [Primary Care Provider, Medical] - See instructions Activity Restrictions/Add. Instructions Additional Instructions/Restrictions: You were evaluated in the emergency department today. At this time, x-rays and CT scans look good and you do not have any acute fracture. You do have some fatty liver noted on CT scan as well as some mild spinal stenosis secondary to degenerative change. Take Tylenol and ibuprofen as needed for pain. Please follow-up outpatient with a primary care provider. Return to the emergency department for new or worsening symptoms. Clinical Impressions Clinical Impression: Fatty liver, Fall, Back pain, Acute pain of right knee Stand Alone Forms Stand Alone Forms: Work/School Release Instructions Patient Instructions: DI for Low Back Pain, DI for Chronic Pain -- Adult, How to Prevent Falls, DI for Knee Pain Print Language Print Language: Austrian Discharge ED Provider: Alyssa Green General Adult HPI General Chief complaint: Fall Stated complaint: AO 01/24/25 08:00Am Fall; Both Hips, Back and Knee Time Seen by Provider: 01/25/25 18:54 Mode of Arrival: Ambulatory Source of Information: Patient Description of Symptoms (Recalled from ER Triage Doc. by RN): patient arrived to emergency department with complaints of lower back, right knee, and pelvic pain builaterally. patient stated it occured yesterday when walking down her driveway and currently states her pain is an 8/10. History of Present Illness HPI narrative: This patient is a 34-year-old female with a history of obesity, chronic knee pain, chronic back pain presenting to the emergency department for evaluation with concern for back and right knee pain after a mechanical ground-level fall. Patient reports that she was walking on an incline when she slipped and fell, landing on her right knee and then right hip. She states that she did not hit her head or lose consciousness. She has severe pain in her low back and her right knee that she states are making it difficult to bear weight, especially in a flexed/squatting position. She states that she does not have any neck pain, upper back pain, chest pain, or other concerns. No numbness, tingling, saddle anesthesia, incontinence, or retention. She is able to walk and bear weight on both legs Related Data Previous Rx's ?Medication ?Instructions ?Recorded cephalexin 500 mg capsule 500 mg PO QID 7 days #28 cap s 03/27/24 meloxicam 7.5 mg tablet 7.5 mg PO DAILY #30 tabs 07/16 prednisone 20 mg tablet 40 mg (2 x 20 mg) PO DAILY 5 days 12/15/24 #10 tabs Allergies Allergy/AdvReac Type Severity Reaction Status Date / Time No Known Allergies Allergy Verified 10/20/24 11:19 [facility] Disclaimer: The information contained in this section may have been updated after the patient was seen, as this information can be updated by other users. Social History Smoking Status: Current some day smoker alcohol intake: never current occupational status: employed Travel in the last 8 weeks?: None Have you lived/traveled outside US in past 30 days?: No Contact w/someone who lives/traveled outside US past 30 days?: No Exposure to someone with infectious disease in past 14 days?: No Do you have a fever (greater than 100.4 F or 38 C)?: No Have you tested positive for COVID-19?: No Exposed to someone with COVID-19 in past 14 days?: No Do you have a sore throat?: No Do you have a cough?: No Do you have any weakness?: No Do you have any diarrhea?: No Are you experiencing any unusual bleeding?: No Do you have any muscle aches/pain?: No Do you have any abdominal pain?: No Are you experiencing loss of taste or smell?: No Other Medical History Have you received the Pneumonia Vaccine: No ROS Obtained: Yes All systems reviewed & no additional complaints except as documented Physical Exam General General appearance: alert and in no apparent distress Head Head exam: atraumatic and normocephalic Eye Eye exam: Present normal appearance, PERRL and EOMI ENT ENT exam: Present normal exam, normal oropharynx, mucous membranes moist and normal external ear exam Neck Neck exam: Present normal inspection, full ROM and trachea midline; Absent tenderness Chest Chest inspection: Present normal inspection and symmetric chest wall rise; Absent tenderness Respiratory Respiratory exam: Present normal lung sounds bilaterally; Absent respiratory distress, wheezes, stridor or accessory muscle use Cardiovascular Cardiovascular exam: Present regular rate and normal rhythm Abdominal Exam Abdominal exam: Present soft; Absent distention, tenderness or guarding Extremities Exam Extremities exam: Present full ROM, tenderness (Right distal femur, right knee. Neurovascularly intact distally. All compartments soft. No obvious deformity) and normal capillary refill; Absent edema Back Exam Back exam: Present full ROM and tenderness (Lumbar spine. No midline step-offs or deformities) Neurological Exam Neurological exam: Present alert, oriented X3, CN II-XII intact and normal gait; Absent motor sensory deficit Psychiatric Psychiatric exam: Present normal affect and normal mood Skin Skin exam: Present warm and dry Medical Decision Making Medical Records Medical records reviewed: Yes I reviewed the patient's medical records. Screening: Per USPSTF and CDC recommendations, given the prevalence of disease in our region, it is our hospital?s policy to screen for HIV and viral Hepatitis for all patients aged 18 and over and those with ongoing risk factors. Jeb Inquiry Pt receiving controlled substance: No Vital Signs: 01/25/25 18:56 01/25/25 19:15 01/25/25 19:34 Temperature 98.3 F Temperature Source Oral Pulse Rate 93 H Pulse Rate [Right Brachial] 104 H Respiratory Rate 16 Blood Pressure 137/86 Blood Pressure [Right Arm] 149/94 H Blood Pressure Mean [Right Arm] 112 Blood Pressure Source Blood Pressure Source [Right Arm] Automatic Cuff Blood Pressure Position Blood Pressure Position [Right Arm] Sitting 02 Sat by Pulse Oximetry 96 96 96 Oxygen Delivery Method Room Air Room Air 01/25/25 20:50 Temperature 98.4 F Temperature Source Oral Pulse Rate 83 Pulse Rate [Right Brachial] Respiratory Rate 18 Blood Pressure 134/95 H Blood Pressure [Right Arm] Blood Pressure Mean [Right Arm] Blood Pressure Source Automatic Cuff Blood Pressure Source [Right Arm] Blood Pressure Position Sitting Blood Pressure Position [Right Arm] 02 Sat by Pulse Oximetry Oxygen Delivery Method Room Air Lab Data Lab results reviewed: Yes I reviewed the patient's lab results. Lab Results 01/25/25 19:24: Urine HCG, Qual Negative Orders (Tests/Meds): ED MEDICATIONS Discontinued Medications Generic Name Dose Route Start Last Admin Trade Name Freq PRN Reason Stop Dose Admin Acetaminophen 1,000 mg 01/25/25 19:01/25/25 19:17 Acetaminophen 500mg Tab PO 01/25/25 19:10 1,000 mg ONCE ONE Administration Ketorolac Tromethamine 30 mg 01/25/25 19:01/25/25 19:17 Ketorolac 30mg/Ml Vial IM 01/25/25 19:10 30 mg ONCE ONE Administration Methocarbamol 500 mg 01/25/25 19:01/25/25 19:17 Methocarbamol 500mg Tablet PO 01/25/25 19:10 500 mg ONCE ONE Administration ORDERS Category Date Time Status CT lumbar spine wo con Stat Cat Scan 01/25/25 19:03 Completed Hip XR right minimum 2 views [XR hip RT 2-3V w/pelvis] Exams 01/25/25 19:03 Completed Stat Knee XR right 3 views [XR knee RT 3V] Stat Exams 01/25/25 19:03 Completed XR femur RT 2V Stat Exams 01/25/25 19:03 Completed Urine , HCG Qual. Stat Lab 01/25/25 19:24 Completed Medical Decision Narrative: In summary, this patient is a 34-year-old female presenting to the Emergency Department for evaluation of low back pain and right knee pain after mechanical ground-level fall that happened yesterday. Differential diagnoses considered include but are not limited to contusion, strain/sprain, ligamentous/cartilaginous injury, fracture, neurovascular injury. Ruling out the most morbid conditions drove assessment. It should be noted patient's history includes obesity, chronic back pain, chronic knee pain which are not at goal therapy. This complicates all aspects of care by increasing patient's risk for morbidity. I reviewed patient's past medical records and noted prior evaluations in the past for knee pain and back pain in the ED as well as by orthopedics. On exam, the patient is lying in bed in no acute distress. She has tenderness over lumbar spine, right distal femur, right knee but no obvious deformity. She is neurovascularly intact with no alarm findings or symptoms suggestive of cauda equina syndrome or spinal cord compression. Workup included test, CT lumbar spine, x-rays of the pelvis, right hip, right femur, right knee. She was given IM Toradol, oral Tylenol, oral Robaxin for symptomatic improvement. I independently interpreted x-ray and CT prior to the radiologist read and noted no acute fracture. Please see their read for final interpretation. At this time, I feel patient does not have any acute emergent life-threatening pathology that requires further workup in the emergency department. I feel she is appropriate for discharge home with close PCP follow-up. Strict return precautions were given Critical Care Critical Care Time Critical Care Time: No
[2025-01-25 19:15] VITALS: BP 137/86; PULSE 93; O2SAT 96
[2025-01-25] MEDS: METHOCARBAMOL 500MG TABLET 500 MG PO (19:17)
[2025-01-25] MEDS: KETOROLAC 30MG/ML VIAL 30 MG IM (19:17)
[2025-01-25] MEDS: ACETAMINOPHEN 500MG TAB 1000 MG PO (19:17)
--- NOTE | 2025-01-25 19:29 | PC.NURSE ---
radiology taking patients for scans
--- NOTE | 2025-01-25 19:32 | PC.NURSE ---
patient back from xray
[2025-01-25 19:34] VITALS: O2SAT 96
[2025-01-25 19:46] LABS: Urine Pregnancy, HCG Qual. Negative (Negative)
--- NOTE | 2025-01-25 19:52 | PC.NURSE ---
patient being taken to CT
--- NOTE | 2025-01-25 20:07 | PC.NURSE ---
Pt returns from CT.
--- NOTE | 2025-01-25 20:10 | PC.NURSE ---
patient back from CT
[2025-01-25 20:50] VITALS: BP 134/95; PULSE 83; RESP 18; TEMP 36.9; O2SAT 98
== END 2025-01-25 20:51 | disposition home or self-care (01) ==
PROVIDERS: Emergency Provider Emergency Medicine
DX: M25.561 Pain in right knee (principal); M54.50 Low back pain, unspecified; K76.0 Fatty (change of) liver, not elsewhere classified; W18.30XA Fall on same level, unspecified, initial encounter
CPT/HCPCS: 72131; 73502; 73552; 73562; 81025; 96372; 99284; J1885

== ENCOUNTER 2025-03-06 11:58 | Outpatient (CLI) | payer OTHER, SELFPAY ==
--- NOTE | 2025-03-06 12:06 | XR_ITS ---
FINAL REPORT CLINICAL HISTORY: Nexplanon placement FINDINGS: LEFT HUMERUS Two views show no evidence of an acute, displaced fracture or dislocation of the visualized bony architecture. The joint spaces appear normal. There is a subcutaneous device located along the posterior medial distal humerus approximately 5 cm proximal to the elbow joint. IMPRESSION: Subcutaneous device 5 cm proximal to the elbow joint. Reviewed, Interpreted and Dictated by Delores Crouch MD Transcribed by Cindy Peterson Authenticated and [facility]
== END 2025-03-06 23:59 | disposition home or self-care (01) ==
LOC: RAD 11:59
PROVIDERS: Visit Provider Obstetrics & Gynecology
DX: Z30.46 Encounter for surveillance of implantable subdermal contraceptive (principal)
CPT/HCPCS: 73060

== ENCOUNTER 2025-03-21 11:00 | Outpatient (RCR) | payer OTHER, SELFPAY | END 2025-03-21 23:59 | disposition home or self-care (01) | LOC: PT.CARL 11:00 | DX: M54.50 Low back pain, unspecified (principal) | CPT/HCPCS: 97032; 97110; 97112; 97140; 97161 ==

== ENCOUNTER 2025-04-05 08:00 | Outpatient (RCR) | payer OTHER, SELFPAY | END 2025-04-05 23:59 | disposition home or self-care (01) | LOC: PT.CARL 08:00 | DX: M54.50 Low back pain, unspecified (principal) | CPT/HCPCS: 97014; 97032; 97110; 97112; 97140; 97530; G0283 ==

== ENCOUNTER 2025-04-12 09:56 | Outpatient (CLI) | payer OTHER, SELFPAY ==
[2025-04-12 07:51] VITALS: BMI 36.6
[2025-04-12 10:32] LABS: Hematocrit 40.5 % (37.0-47.0); Hemoglobin 13.7 g/dL (12.2-16.2); Immature Granulocytes % 0.5 %; Mean Corpuscular HGB Conc 33.8 g/dL (31.8-35.4); Mean Corpuscular Hemoglobin 30.2 pg (27.0-31.2); Mean Corpuscular Volume 89.2 fl (81-99); Nucleated Red Blood Cells % 0 %; Platelet Count 419 K/mm3 (142-424); Red Blood Count 4.54 M/mm3 (4.20-5.40); Red Cell Distribution Width-SD 39.8 fL; White Blood Count 10.2 K/mm3 (4.8-10.8)
[2025-04-12 10:37] LABS: Albumin Level 4.0 g/dl (3.5-5.0); Chloride 103 mmol/L (98-107); Potassium 3.9 mmoL/L (3.5-5.1)
[2025-04-12 10:39] LABS: Blood Urea Nitrogen 4 mg/dl (7-17); Creatinine Clearance Estimated 175 mL/min (50-200); Creatinine,Serum 0.70 mg/dl (0.52-1.04); Estimated Glomerular Filt Rate 95 ml/min (>60); Sodium 135 mmol/L (136-145)
[2025-04-12 10:40] LABS: Albumin/Globulin Ratio 1.3 (1.1-1.8); Anion Gap 8.9 mEq/L (5-15); Calcium 8.3 mg/dl (8.4-10.2); Carbon Dioxide 27 mmol/L (22.0-30.0); GFR (African American) 115 ML/MIN (>60); Globulin 3.0 g/dL (1.3-3.2); Glucose 111 mg/dl (74-100); Total Protein,Serum 7.0 g/dl (6.3-8.2)
[2025-04-12 10:42] LABS: Alanine Aminotransferase 61 U/L (12-78); Alkaline Phosphatase 98 U/L (38-126); Aspartate Amino Transferase 46 U/L (14-36); Bilirubin,Total 0.4 mg/dl (0.2-1.3)
[2025-04-12 10:51] LABS: HCG Qualitative, Serum Negative (Negative)
== END 2025-04-12 23:59 | disposition home or self-care (01) ==
LOC: PREOP 09:57
PROVIDERS: Visit Provider Obstetrics & Gynecology
DX: Z01.812 Encounter for preprocedural laboratory examination (principal)
CPT/HCPCS: 80053; 84703; 85025

== ENCOUNTER 2025-04-19 06:08 | Day surgery (SDC) | payer OTHER, SELFPAY ==
[2025-04-12 14:20] VITALS: BMI 42.3
[2025-04-19] VITALS (11 sets, daily range): BP systolic 35–138; BP diastolic 7–99; PULSE 74–95; RESP 14–18; TEMP 36.2–36.6; O2SAT 96–98
[2025-04-19] MEDS: LACTATED RINGERS 1000ML 1,000 ML 25 ML IV (07:01)
--- NOTE | 2025-04-19 07:10 | P.PNANES_ITS ---
[facility] Disclaimer: The information contained in this section may have been updated after the patient was seen, as this information can be updated by other users. Medical History Encounter for preoperative assessment Failed Nexplanon removal Osteoarthritis Fatty liver Surgical History H/O discectomy Cholecystotomy with removal of foreign body from gallbladder performed Family History Unknown Anxiety and depression Mother Anxiety Father No problems noted. Grandmother Alzheimer's dementia Other Family history of diabetes mellitus Family history of heart disease Family history of hypertension Social History Smoking Status: Current every day smoker alcohol intake: never substance use type: marijuana current occupational status: unemployed Travel in the last 8 weeks?: None Have you lived/traveled outside US in past 30 days?: No Contact w/someone who lives/traveled outside US past 30 days?: No Exposure to someone with infectious disease in past 14 days?: No Do you have a fever (greater than 100.4 F or 38 C)?: No Have you tested positive for COVID-19?: No Exposed to someone with COVID-19 in past 14 days?: No Do you have a sore throat?: No Do you have a cough?: No Do you have any weakness?: No Are you experiencing any nausea/vomitting?: No Do you have any diarrhea?: No Are you experiencing any unusual bleeding?: No Do you have any muscle aches/pain?: No Do you have any abdominal pain?: No Are you experiencing loss of taste or smell?: No [facility] Anesthesia Checklist Patient Identification Patient Identification: Arm Band Structural Data Admitted From: Home Planned Operative Procedure/s: Nexplanon Removal Left Arm Consent for Planned Operative Procedure(s) Verified: Yes Verified Documents: Surgical Consent and History and Physical NPO Status Verified Time NPO: 05:00 (gatorade) Additional verifications Anesthesia Reactions: No Hx Blood Transfusions: No Blood Transfusion Reaction: No Airway Assessment Mallampati Score:: Class II C-Spine Mobility Assessed: Yes TMJ Mobility Assessed: Yes Dentition: Good Dentition Neurological Assessment Level of Consciousness: Awake, Alert and Appropriate Anesthesia Plan Anesthesia Risk discussed: Yes Anesthesia Plan: Verified ASA Class: III Anesthesia Type: General
--- NOTE | 2025-04-19 07:30 | XR_ITS ---
FINAL REPORT CLINICAL HISTORY: NEXPLANON REMOVAL 14 SECONDS FLUORO TIME 0.60MGY FINDINGS: A single fluoroscopic view of the humerus was obtained. 14 seconds of fluoroscopy time was reported, 0.60 mGy. IMPRESSION: 14 seconds of fluoroscopy, 0.60 mGy. Reviewed, Interpreted and Dictated by Cortes Coy MD Transcribed by Cindy Peterson Authenticated and [facility]
[2025-04-19] MEDS: LIDOCAINE 1% 10ML MDV 10 ML (07:41)
--- NOTE | 2025-04-19 07:50 | P.OP_ITS ---
Date of procedure: 04/19/25 Pre-op Diagnosis:: Retained Nexplanon Post-op Diagnosis:: Removed etonogestrel implant Procedure performed:: C-arm assisted etonogestrel implant contraceptive device removal Surgeon:: Rivka Benedict DO Child Caregiver Private Home(s):: Dave Leiva DO BOX OFFICE ATTENDANT:: Garth Armstrong Anesthesia: MAC Estimated blood loss (mL): 5 Operative findings:: Non palpable contraceptive implant device Operative note:: Informed consent obtained, patient taken to the OR, anesthesia applied, and patient was prepped and draped in normal sterile fashion ? Inner aspect of left upper extremity prepped with thoroughly with CHG. The previous insertion site was scarred and noted. The C arm was placed in position and all personnel in the OR were draped out in protective lead. Optimal removal location identified and marked. X-ray obtained and device noted 10 mL lidocaine with epi injected subcutaneous in marked location small 8mm incision made, hemostat inserted, and C-arm used to triangulate optimal removal location. Etonogestrel implant grasped and device removed with ease 1 small interrupted suture was placed subcuticularly with 4-0 Monocryl to reapproximate the removal site. Removal site hemostatic and bandage applied EBL: 5 mL Patient tolerated procedure well User card was completed and given to patient for her personal records Condition: stable Disposition: same day Specimens:: Etonogestrel implant Complications:: None
--- NOTE | 2025-04-19 08:01 | P.PNANES_ITS ---
[facility] Anesthesia Record Part I Anesthesia Record I Intake, IV Amount: 650 Hydration: Adequate Estimated blood loss (mL): 0 Urine output (mL): 0 Blood Products used (#): none Blood Pressure: 35/7 SaO2: 96 Pulse Rate: 79 Airway Patency: Patent Respiratory Rate: 14 Temperature: 97.7 F Patient is:: Drowsy and Stable Stable to PACU at:: 07:58
--- NOTE | 2025-04-19 12:36 | EXP.ANES.II ---
[facility] Anesthesia Record Part II Anesthesia Record Part II Discharge Time: 08:28 Destination: Surgical Day Care (OP Surgery) PACU nurse assessment reviewed?: Yes Patient Condition:: Good Anesthesia Complications:: None Swallowing reflex intact?: Yes Airway Patency: Patent Cyanosis?: No Blood Pressure: 119/92 SaO2: 97 Respiratory Rate: 14 Pulse Rate: 79 Temperature: 97.7 F Mental Status: Alert & Oriented Pain level:: 0 Nausea and/or vomitting:: None Intake, IV Amount: 0 Hydration: Adequate
== END 2025-04-19 09:10 | disposition home or self-care (01) ==
PROVIDERS: Visit Provider Obstetrics & Gynecology
PROC: (CPT 11982; principal; 2025-04-19 07:30)
DX: Z30.46 Encounter for surveillance of implantable subdermal contraceptive (principal); F17.200 Nicotine dependence, unspecified, uncomplicated; Z90.49 Acquired absence of other specified parts of digestive tract; Z88.5 Allergy status to narcotic agent
CPT/HCPCS: 11982; 73060; 76000; J1100; J2003; J2250; J2405; J2704; J3010; J7120

== ENCOUNTER 2025-05-30 08:02 | Emergency (ER) | payer OTHER, SELFPAY ==
--- NOTE | 2025-05-30 08:07 | [facility].EDGENADL ---
Discharge Plan Disposition Patient Disposition: Home, Self-Care Condition: Good Prescriptions Prescriptions: New acetaminophen 500 mg capsule 1,000 mg PO Q6H PRN (Reason: pain) Qty: 30 0RF ibuprofen 800 mg tablet 800 mg PO Q8H PRN (Reason: pain) Qty: 30 0RF methocarbamol 750 mg tablet 750 mg PO TID Qty: 30 0RF lidocaine 5 % adhesive patch,medicated 1 patch topical DAILY Qty: 15 0RF Rx Instructions: leave on most painful area for up to 12 hrs No Action norethindrone-e.estradiol-iron [Loestrin Fe 1.5/30 (28-Day)] 1.5 mg-30 mcg (21)/75 mg (7) tablet 1 tab PO DAILY Qty: 84 6RF ibuprofen 800 mg Tablet 800 mg PO DAILY PRN (Reason: Pain) Qty: 30 0RF Referrals Follow up/Referrals: Rebeca Calderon APRN [Primary Care Provider, Medical] - See instructions Activity Restrictions/Add. Instructions Additional Instructions/Restrictions: Return if you develop any numbness weakness tingling or urinary changes. Please follow up with your primary care provider in 2-3 days. Please return to ED if your symptoms worsen, change in location, change in severity, new symptoms develop or if you become concerned for your health. Clinical Impressions Clinical Impression: Acute exacerbation of chronic low back pain Instructions Patient Instructions: DI for Low Back Pain Print Language Print Language: Swiss Discharge ED Provider: Asad Serra Adult [facility] General Chief complaint: Back Pain/Injury Stated complaint: AO: Fall Back pain left leg pain/left foot numbnes Time Seen by Provider: 05/30/25 08:07 History of Present Illness HPI narrative: Patient is a 34-year-old female with history of chronic back pain. She reports she had a fall several months ago and has been evaluated for this. She reports she has had an MRI scheduled, but has been unable to get in. She reports worsening pain in the lumbar spine with sciatic radiation down her left leg. She reports that she has been taking upwards of 1000 mg of ibuprofen a day to treat this pain with minimal relief. Reports some numbness in her left foot. But denies any saddle anesthesia or urinary changes. Denies any weakness. Denies any numbness anywhere else. Denies any recurrent falls. Denies any history of IV drug use or fevers. Related Data Previous Rx's ?Medication ?Instructions ?Recorded ibuprofen 800 mg tablet 800 mg PO DAILY PRN Pain #30 tabs 04/19/25 norethindrone 1.5 mg-ethinyl 1 tab PO DAILY #84 tabs 05/03/25 estradiol 30 mcg(21)/iron 75 mg(7) tablet (Loestrin Fe 1.5/30 (28-Day)) acetaminophen 500 mg capsule 1,000 mg (2 x 500 mg) PO Q6H PRN 05/30/25 pain #30 caps ibuprofen 800 mg tablet 800 mg PO Q8H PRN pain #30 tabs 05/30/25 lidocaine 5 % topical patch 1 patch topical DAILY #15 ea 05/30/25 methocarbamol 750 mg tablet 750 mg PO TID #30 tabs 05/30/25 Allergies Allergy/AdvReac Type Severity Reaction Status Date / Time Loratab AdvReac Severe Seizure Uncoded 05/02/25 13:10 [facility] Disclaimer: The information contained in this section may have been updated after the patient was seen, as this information can be updated by other users. Medical History (Updated 05/30/25 @ 10:31 by Asad Serra MD) Encounter for preoperative assessment Failed Nexplanon removal Osteoarthritis Fatty liver Surgical History (Updated 05/02/25 @ 13:11 by DAMIEN Oliva) History of surgery on arm H/O discectomy Cholecystotomy with removal of foreign body from gallbladder performed Family History Unknown Anxiety and depression Mother Anxiety Father , Heart related issues. No problems noted. Grandmother Alzheimer's dementia Other Family history of diabetes mellitus Family history of heart disease Family history of hypertension Social History Smoking Status: Current every day smoker alcohol intake: never substance use type: marijuana current occupational status: unemployed Travel in the last 8 weeks?: None Have you lived/traveled outside [place] in past 30 days?: No Contact w/someone who lives/traveled outside [place] past 30 days?: No Exposure to someone with infectious disease in past 14 days?: No Do you have a fever (greater than 100.4 F or 38 C)?: No Have you tested positive for COVID-19?: No Exposed to someone with COVID-19 in past 14 days?: No Do you have a sore throat?: No Do you have a cough?: No Do you have any weakness?: No Do you have any diarrhea?: No Are you experiencing any unusual bleeding?: No Do you have any muscle aches/pain?: No Do you have any abdominal pain?: No Are you experiencing loss of taste or smell?: No Other Medical History Have you received the Pneumonia Vaccine: No ROS Obtained: Yes All systems reviewed & no additional complaints except as documented Physical Exam General General appearance: alert and in no apparent distress Head Head exam: atraumatic and normocephalic Eye Eye exam: Present PERRL and EOMI ENT ENT exam: Present normal oropharynx Neck Neck exam: Present full ROM and trachea midline Chest Chest inspection: Present symmetric chest wall rise Respiratory Respiratory exam: Present normal lung sounds bilaterally; Absent stridor Cardiovascular Cardiovascular exam: Present regular rate and normal rhythm Abdominal Exam Abdominal exam: Present soft; Absent distention or tenderness Extremities Exam Extremities exam: Present full ROM and tenderness (Tender palpation midline lumbar spine without step-off or deformity) Neurological Exam Neurological exam: Present alert, oriented X3, CN II-XII intact and reflexes normal; Absent motor sensory deficit Psychiatric Psychiatric exam: Present normal mood Skin Skin exam: Present warm and dry Medical Decision Making Medical Records Screening: Per USPSTF and CDC recommendations, given the prevalence of disease in our region, it is our hospital?s policy to screen for HIV and viral Hepatitis for all patients aged 18 and over and those with ongoing risk factors. Jeb Inquiry Pt receiving controlled substance: No Vital Signs: 05/30/25 08:10 05/30/25 09:01 05/30/25 09:30 Temperature 98.1 F Temperature Source Oral Pulse Rate 78 77 Pulse Rate [Right Radial] 87 Respiratory Rate 17 Blood Pressure 186/109 H 122/105 H Blood Pressure [Right Arm] 186/146 H Blood Pressure Mean [Right Arm] 159 Blood Pressure Source [Right Arm] Automatic Cuff Blood Pressure Position [Right Arm] Supine 02 Sat by Pulse Oximetry 97 96 96 Oxygen Delivery Method Room Air Room Air Room Air Orders (Tests/Meds): ED MEDICATIONS Discontinued Medications Generic Name Dose Route Start Last Admin Trade Name Freq PRN Reason Stop Dose Admin Acetaminophen 1,000 mg 05/30/25 08:34 05/30/25 09:22 Acetaminophen 500mg Tab PO 05/30/25 08:35 1,000 mg ONCE ONE Administration Dexamethasone 10 mg 05/30/25 08:34 05/30/25 09:22 Dexamethasone 4mg Tablet PO 05/30/25 08:35 10 mg ONCE ONE Administration Ketorolac Tromethamine 15 mg 05/30/25 08:34 05/30/25 09:23 Ketorolac 15mg/Ml Vial IM 05/30/25 08:35 15 mg ONCE ONE Administration Lidocaine 1 each 05/30/25 08:34 05/30/25 09:23 Lidocaine 5% Transdermal Patch TD 05/30/25 08:35 1 each ONCE ONE Administration Methocarbamol 1,000 mg 05/30/25 08:35 05/30/25 09:23 Methocarbamol 500mg Tablet PO 05/30/25 08:36 1,000 mg ONCE ONE Administration ORDERS Category Date Time Status HIV Combo Stat Lab 05/30/25 08:17 Ordered Hepatitis C Ab Qual. W/ RFX Stat Lab 05/30/25 08:17 Ordered Urine , HCG Qual. Stat Lab 05/30/25 08:34 Ordered Medical Decision Narrative: Patient is a 34 old female with history of chronic back pain. Presenting today for an acute exacerbation of her chronic back pain. Denies any recurrent falls. On exam, is warm and well-perfused with full and equal pulses hypertensive likely secondary to pain, otherwise stable. Afebrile. She is tender in the midline lumbar spine. Has positive straight leg raise on the left. Does have some sciatic radiation of her pain down the left leg. She is exhibiting no objective sensory changes in a dermatomal distribution of my examination. Has good strength. Her reflexes are equal and brisk. No red flag symptoms for cauda equina such as urine incontinence or saddle anesthesia. Considered MRI here, but no indication for emergent imaging. On reassessment, patient reports improvement in her symptoms. She is ambulatory about the emergency department and remains neurovascularly intact. Has good follow-up with orthopedist. My clinical impression was discussed with the patient and all questions were answered. Return precautions were given, with verbalization of understanding and agreement of this plan. Any pending results are to be followed up online. Critical Care Critical Care Time Critical Care Time: No
[2025-05-30 08:10] VITALS: BP 186/146; PULSE 87; RESP 17; TEMP 36.7; O2SAT 97; BMI 42.4
[2025-05-30 09:01] VITALS: BP 186/109; PULSE 78; O2SAT 96
[2025-05-30] MEDS: ACETAMINOPHEN 500MG TAB 1000 MG PO (09:22)
[2025-05-30] MEDS: DEXAMETHASONE 4MG TABLET 10 MG PO (09:22)
[2025-05-30] MEDS: LIDOCAINE 5% TRANSDERMAL PATCH 1 EACH TD (09:23)
[2025-05-30] MEDS: METHOCARBAMOL 500MG TABLET 1000 MG PO (09:23)
[2025-05-30] MEDS: KETOROLAC 15MG/ML VIAL 15 MG IM (09:23)
[2025-05-30 09:30] VITALS: BP 122/105; PULSE 77; O2SAT 96
[2025-05-30 10:00] VITALS: BP 142/92; PULSE 69; O2SAT 96
[2025-05-30 10:30] VITALS: BP 139/85; PULSE 73; O2SAT 96
[2025-05-30 10:31] VITALS: BP 139/85; PULSE 74; RESP 20; TEMP 36.9; O2SAT 99
== END 2025-05-30 10:37 | disposition home or self-care (01) ==
PROVIDERS: Emergency Provider Emergency Medicine
DX: M54.59 Other low back pain (principal); G89.29 Other chronic pain
CPT/HCPCS: 96372; 99283; 99285; J1885; J8540

== ENCOUNTER 2025-06-02 15:31 | Outpatient (CLI) | payer OTHER, SELFPAY ==
--- NOTE | 2025-06-02 15:35 | MR_ITS ---
PROCEDURE INFORMATION: Exam: MR Lumbar Spine Without Contrast Exam date and time: 06/02/2025 3:58 PM Age: 34 years old Clinical indication: Low back pain; Additional info: Severe low back pain, effecting ability to walk. Fall approx. 3 months ago TECHNIQUE: Imaging protocol: Magnetic resonance imaging of the lumbar spine without contrast. COMPARISON: CT LUMBAR SPINE WO [facility] 01/25/2025 7:56 PM FINDINGS: Trace retrolisthesis of L3 on L4 and L5 on S1. Vertebral body heights are preserved. Disc desiccation at L3-L4 through L5-S1 with disc space narrowing. Associated degenerative endplate signal. Negative for discitis/osteomyelitis. No epidural fluid collection. Conus medullaris terminates at L1-L2. L1-L2: No central or foraminal stenosis. L2-L3: No central or foraminal stenosis. L3-L4: Shallow central protrusion and mild bilateral facet joint arthropathy. Findings result in [id number] central canal stenosis without significant foraminal stenosis. L4-L5: Disc osteophyte complex with superimposed left paracentral protrusion and mild bilateral facet joint arthropathy. Moderate central canal stenosis and mild bilateral foraminal stenosis. L5-S1: Disc osteophyte complex and bilateral facet joint hypertrophy. No significant central canal stenosis. Moderate bilateral foraminal stenosis. IMPRESSION: 1. No acute pathology. 2. Degenerative disc disease as above resulting in [id number] central canal stenosis at L3-L4 and moderate central canal stenosis at L4-L5.
== END 2025-06-02 23:59 | disposition home or self-care (01) ==
LOC: RAD 15:32
DX: M51.369 Other intervertebral disc degeneration, lumbar region without mention of lumbar back pain or lower extremity pain (principal); M48.061 Spinal stenosis, lumbar region without neurogenic claudication; M43.16 Spondylolisthesis, lumbar region
CPT/HCPCS: 72148